=== PATIENT | female | born 1950 | race African-American/Black ===

== ENCOUNTER 2022-05-28 15:50 | Emergency (ER) | payer OTHER ==
[2022-05-28] MEDS ORDERED: NA CHLORIDE 0.9% 1,000 ML ONE (16:59)
[2022-05-28] MEDS ORDERED: NA CHLORIDE 0.9% 500 ML ONE ×2 (17:00→19:59)
[2022-05-28] MEDS ORDERED: FOLIC ACID 5 MG/ML VIAL ONE (17:01)
--- NOTE | 2022-05-28 17:09 | ER ---
Nurse's Notes [facility] Name: Quin Moody Age: 71 yrs Sex: Female : 1950 Arrival Date: 05/28/2022 Time: 15:54 Bed 7 Private MD: Diagnosis: Dysphagia;Weakness;Elevated white blood cell count;Dehydration Presentation: 05/28 15:56 Chief complaint: EMS states: [facility] sent her because she in nonverbal, and is kr3 having trouble swallowing and unable to take meds starting today. Nurses at [facility] said that she has declined over the past few days. Initial Sepsis Screen: Does the patient meet any 2 criteria? No. Patient's initial sepsis screen is negative. Does the patient have a suspected source of infection? No. Patient's initial sepsis screen is negative. Risk Assessment: Do you want to hurt yourself or someone else? Patient reports no desire to harm self or others. 15:56 Method Of Arrival: EMS: [facility] kr3 15:56 Acuity: ALETA 3 kr3 16:01 Coronavirus screen: Vaccine status: Patient reports receiving the 2nd dose of the covid kr3 vaccine. Client denies travel out of the [place] in the last 14 days. Ebola Screen: Patient denies travel to an Ebola-affected area in the 21 days before illness onset. 16:02 Onset of symptoms was May 25, 2022. kr3 Triage Assessment: 16:16 General: Appears in no apparent distress. comfortable, Behavior is calm, cooperative, kr3 appropriate for age. Pain: Denies pain. Historical: - Allergies: 16:09 Bupropion; kr3 16:09 Lisinopril; kr3 16:09 Augmentin; kr3 16:09 Compazine; kr3 16:09 Keflex; kr3 - PMHx: 16:05 Cerebrovascular accident; Transient cerebral ischemia; Diabetes mellitus; Hypertensive kr3 disorder; Hypercholesterolemia; - Immunization history:: Adult Immunizations up to date, Client reports receiving the 2nd dose of the Covid vaccine. - Social history:: Smoking status: Patient denies any tobacco usage or history of. - Family history:: not pertinent. Screenin:38 Abuse screen: Denies threats or abuse. Denies injuries from another. Nutritional as6 screening: No deficits noted. Tuberculosis screening: No symptoms or risk factors identified. Fall Risk None identified. Assessment: 17:00 Reassessment: No changes from previously documented assessment. Patient and/or family ll1 updated on plan of care and expected duration. Pain level reassessed. 18:00 Reassessment: No changes from previously documented assessment. Patient and/or family ll1 updated on plan of care and expected duration. Pain level reassessed. 19:00 Reassessment: No changes from previously documented assessment. Patient and/or family ll1 updated on plan of care and expected duration. Pain level reassessed. 19:58 General: pt does not want to be transferred, provider spoke with pt. pt understands the as6 risks for leaving. pt wanting to go home . Vital Signs: 15:56 BP 128 / 88; Pulse 98; Resp 16; Temp 98.0; Pulse Ox 99% on R/A; kr3 20:00 BP 138 / 85; Pulse 97; Resp 16 S; Pulse Ox 99% on R/A; as6 21:00 BP 136 / 97; Pulse 91; Resp 17 S; Pulse Ox 100% on R/A; as6 22:00 BP 139 / 84; Pulse 92; Resp 17 S; Pulse Ox 99% on R/A; as6 NIH Stroke Scale Scores: 19:25 NIHSS Score: 0 anastasia ED Course: 15:51 Patient placed in an exam room, on a stretcher. kr3 15:54 Patient arrived in ED. eb 15:56 Jud Hunt, VARSHA is Primary Nurse. kr3 16:01 Triage completed. kr3 16:22 Rashawn Duran MD is Attending Physician. anastasia 17:00 Missed attempt(s): 22 gauge in right upper arm. Bleeding controlled, band aid applied, ll1 catheter tip intact. 17:10 XRAY Chest (1 view) In Process Unspecified. EDMS 17:13 CT Head Brain wo Cont In Process Unspecified. EDMS 18:35 Inserted saline lock: 18 gauge in left EJ, using aseptic technique. Blood collected. ll1 19:19 Faxed over patient information to the [facility]. mw2 19:47 Attending Physician role handed off by Rashawn Duran MD ms3 19:47 Gustabo Cee DO is Attending Physician. ms3 20:[address] Cee to the Doctor from the [facility]. mw2 20:22 administrative approval given by Tran Guevara/ patient has been accepted to the [address] to the ER/ Dr. Holbrook accepted the patient in transfer/report to be called to [phone] ext. [phone]. 21:38 [facility] ETA 1 hour. mw2 22:39 Arm band placed on. as6 22:39 Placed in gown. Bed in low position. Call light in reach. Side rails up X2. as6 22:39 No provider procedures requiring assistance completed. Patient transferred, IV remains as6 in place. Administered Medications: 19:06 Drug: NS 0.9% 500 ml Route: IV; Rate: bolus; Site: Other; kr3 22:40 Follow up: Response: No adverse reaction; IV Status: Completed infusion; IV Intake: as6 500ml 19:12 Drug: foLIC Acid 1 mg Route: IVPB; Site: left jugular; as6 22:42 Follow up: Response: No adverse reaction; IV Status: Completed infusion; IV Intake: [id number] 20:14 Drug: NS 0.9% 1000 ml Route: IV; Rate: 125 ml/hr; Site: left jugular; as6 22:42 Follow up: Response: No adverse reaction; IV Status: Order to discontinue infusion; IV as6 Intake: 400ml 20:14 Drug: LevaQUIN (levofloxacin) 500 mg Volume: 100 ml; Route: IVPB; Infused Over: 60 as6 mins; Site: left jugular; 22:40 Follow up: Response: No adverse reaction; IV Status: Completed infusion; IV Intake: as6 100ml 20:14 Drug: Aspirin 81 mg Route: PO; as6 22:40 Follow up: Response: No adverse reaction as6 20:14 Drug: PlaVIX (clopidogrel) 75 mg Route: PO; as6 22:40 Follow up: Response: No adverse reaction as6 20:14 Drug: NS 0.9% 500 ml Route: IV; Rate: bolus; Site: left jugular; as6 22:40 Follow up: Response: No adverse reaction; IV Status: Completed infusion; IV Intake: as6 500ml Medication: 22:40 VIS not applicable for this client. as6 Intake: 22:40 IV: 500ml; Total: 500ml. as6 22:40 IV: 100ml; Total: 600ml. as6 22:40 IV: 500ml; Total: 1100ml. as6 22:42 IV: 50ml; Total: 1150ml. as6 22:42 IV: 400ml; Total: 1550ml. as6 Outcome: 17:08 ER care complete, transfer ordered by . [facility] 22:39 Transferred by ground EMS to [facility] Transfer form completed. as6 X-rays sent w/ patient. 22:39 Condition: stable 22:39 Instructed on the need for transfer. 22:46 Patient left the ED. as6 NIH Stroke Scale - NIH Stroke Score Date: 05/28/2022 Time: 19:25 Total Score = 0 1a. Level of Consciousness (LOC) - 0(Alert) 1b. Level of Consciousness (LOC) (Month \T\ Age) - 0(Both) 1c. LOC Commands (Open \T\ Closes Eyes/Payroll Master) - 0(Both) 2. Best Gaze (Lateral Gaze Paresis) - 0(Normal) 3. Visual Field Loss - 0(No visual loss) 4. Facial Palsy - 0(Normal) 5a. Left Arm: Motor (10-second hold) - 0(No drift) 5b. Right Arm: Motor (10-second hold) - 0(No drift) 6a. Left Leg: Motor (5-second hold - always test supine) - 0(No drift) 6b. Right Leg: Motor (5-second hold - always test supine) - 0(No drift) 7. Limb Ataxia (finger/nose \T\ heel/munoz - test with eyes open) - 0(Absent) 8. Sensory Loss (pinprick arms/legs/face) - 0(Normal) 9. Best Language: Aphasia (description/naming/reading) - 0(No aphasia) 10. Dysarthria (speech clarity - read or repeat words) - 0(Normal) 11. Extinction and Inattention (visual/tactile/auditory/spatial/personal) - 0(No abnormality) Initials: [facility] Signatures: Dispatcher [employer] EDMS Rashawn Duran MD MD cha Westbrook, MyKena mw2 Eliane Samuel Lynsay, RN RN ll1 Gustabo Cee DO DO ms3 Luis Allen RN RN as6 Jud Hunt RN RN kr3 Corrections: (The following items were deleted from the chart) 16:05 15:56 Chief complaint: EMS states: [facility] sent her because she in kr3 nonverbal, and is having trouble swallowing. Nurses at [facility] said that she has declined over the past few days. kr3 16:17 16:16 Patient placed in an exam room, on a stretcher, kr3 kr3
--- NOTE | 2022-05-28 17:09 | EDPHYS ---
Physician Documentation [facility] Name: Quin Moody Age: 71 yrs Sex: Female : 1950 Arrival Date: 05/28/2022 Time: 15:54 Bed 7 Private MD: ED Physician Gustabo Cee HPI: 05/28 16:46 This 71 yrs old Black Female presents to ER via EMS with complaints of dyspnea, sob and anastasia not swallowing. 16:46 The patient has shortness of breath at rest, with light activity. Onset: The anastasia symptoms/episode began/occurred 2 day(s) ago. Duration: The symptoms are intermittent, with no pattern. The patient's shortness of breath has no apparent modifying factors. in nh , cva 05/07. Associated signs and symptoms: Pertinent positives: non-productive cough, dizziness. Severity of symptoms: At their worst the symptoms were mild moderate in the emergency department the symptoms have resolved. The patient or guardian reports cough, difficulty breathing. Severity of symptoms: At their worst the symptoms were mild, moderate, in the emergency department the symptoms are unchanged. Historical: - Allergies: 16:09 Bupropion; kr3 16:09 Lisinopril; kr3 16:09 Augmentin; kr3 16:09 Compazine; kr3 16:09 Keflex; kr3 - PMHx: 16:05 Cerebrovascular accident; Transient cerebral ischemia; Diabetes mellitus; Hypertensive kr3 disorder; Hypercholesterolemia; - Immunization history:: Adult Immunizations up to date, Client reports receiving the 2nd dose of the Covid vaccine. - Social history:: Smoking status: Patient denies any tobacco usage or history of. - Family history:: not pertinent. ROS: 16:46 Constitutional: Negative for fever, chills, and weight loss, Eyes: Negative for injury, anastasia pain, redness, and discharge, ENT: Negative for injury, pain, and discharge, Neck: Negative for injury, pain, and swelling, Cardiovascular: Negative for chest pain, palpitations, and edema, Abdomen/GI: Negative for abdominal pain, nausea, vomiting, diarrhea, and constipation, Back: Negative for injury and pain, : Negative for injury, bleeding, discharge, and swelling, MS/Extremity: Negative for injury and deformity, Skin: Negative for injury, rash, and discoloration, Neuro: Negative for headache, weakness, numbness, tingling, and seizure, Psych: Negative for depression, anxiety, suicide ideation, homicidal ideation, and hallucinations, Allergy/Immunology: Negative for hives, rash, and allergies, Endocrine: Negative for neck swelling, polydipsia, polyuria, polyphagia, and marked weight changes. 16:46 Respiratory: Positive for cough, with no reported sputum. Exam: 16:46 Constitutional: This is a well developed, well nourished patient who is awake, alert, anastasia and in no acute distress. Head/Face: Normocephalic, atraumatic. Eyes: Pupils equal round and reactive to light, extra-ocular motions intact. Lids and lashes normal. Conjunctiva and sclera are non-icteric and not injected. Cornea within normal limits. Periorbital areas with no swelling, redness, or edema. ENT: Nares patent. No nasal discharge, no septal abnormalities noted. Tympanic membranes are normal and external auditory canals are clear. Oropharynx with no redness, swelling, or masses, exudates, or evidence of obstruction, uvula midline. Mucous membranes moist. Neck: Trachea midline, no thyromegaly or masses palpated, and no cervical lymphadenopathy. Supple, full range of motion without nuchal rigidity, or vertebral point tenderness. No Meningismus. Chest/axilla: Normal chest wall appearance and motion. Nontender with no deformity. No lesions are appreciated. Cardiovascular: Regular rate and rhythm with a normal S1 and S2. No gallops, murmurs, or rubs. Normal PMI, no JVD. No pulse deficits. Abdomen/GI: Soft, non-tender, with normal bowel sounds. No distension or tympany. No guarding or rebound. No evidence of tenderness throughout. Back: No spinal tenderness. No costovertebral tenderness. Full range of motion. Female : Normal external genitalia. Skin: Warm, dry with normal turgor. Normal color with no rashes, no lesions, and no evidence of cellulitis. MS/ Extremity: Pulses equal, no cyanosis. Neurovascular intact. Full, normal range of motion. Neuro: Awake and alert, GCS 15, oriented to person, place, time, and situation. Cranial nerves II-XII grossly intact. Motor strength 5/5 in all extremities. Sensory grossly intact. Cerebellar exam normal. Normal gait. Psych: Awake, alert, with orientation to person, place and time. Behavior, mood, and affect are within normal limits. 16:46 ECG was reviewed by the Attending Physician. Vital Signs: 15:56 BP 128 / 88; Pulse 98; Resp 16; Temp 98.0; Pulse Ox 99% on R/A; kr3 20:00 BP 138 / 85; Pulse 97; Resp 16 S; Pulse Ox 99% on R/A; as6 21:00 BP 136 / 97; Pulse 91; Resp 17 S; Pulse Ox 100% on R/A; as6 22:00 BP 139 / 84; Pulse 92; Resp 17 S; Pulse Ox 99% on R/A; as6 NIH Stroke Scale Scores: 19:25 NIHSS Score: 0 anastasia Procedures: 18:40 Peripheral line: by aseptic technique a peripheral line was placed in the left external anastasia jugular vein. MDM: 16:22 Patient medically screened. anastasia 16:52 Differential diagnosis: Anxiety Reaction CHF exacerbation, Chronic Obstructive anastasia Pulmonary Disease pulmonary edema, reactive airway disease, Sepsis Unstable Angina. Antibiotic administration: . Differential Diagnosis altered mental status, sepsis, flu, Bronchitis Influenza Upper Respiratory Infection Sinusitis Pharyngitis. The patient's Wells Deep Vein Thrombosis Score was calculated as follows: Heart Rate >100 BPM (1.5 Pts) Imm/Surg in last 4 wks (1.5 Pts) Total Score: 3-6 Pts - Mod Risk. The patient's pulmonary embolism risk score was calculated as follows: the patients heart rate is greater than 100 beats per minute (1.5 Pts) patient has experienced immobilization or surgery in the last four weeks (1.5 Pts) Total Score: 3-6 points. This patient was found to be at moderate risk for a pulmonary embolism by using the Well's assessment criteria. Immunization status: Pneumococcal vaccine: Influenza vaccine: Data reviewed: vital signs, nurses notes, EMS record, lab test result(s), EKG, radiologic studies, CT scan, plain films. Data interpreted: front desk monitor: rate is 98 beats/min, rhythm is regular, Pulse oximetry: on room air is 99 %. Test interpretation: by ED physician or midlevel provider: ECG, plain radiologic studies. Counseling: I had a detailed discussion with the patient and/or guardian regarding: the historical points, exam findings, and any diagnostic results supporting the discharge/admit diagnosis, lab results, radiology results, the need to transfer to another facility, for higher level of care, [facility] does not immediately have the required specialist. 21:11 ED course: Discussed case with Dr Machado [facility] ms3 05/28 16:38 Order name: Basic Metabolic Panel [facility] 05/28 16:38 Order name: CBC with Diff; Complete Time: 18:42 [facility] 05/28 16:38 Order name: LFT's [facility] 05/28 16:38 Order name: Magnesium 05/28 16:38 Order name: NT PRO-BNP anastasia 05/28 16:38 Order name: PT-INR; Complete Time: 19:22 [facility] 05/28 16:38 Order name: Troponin HS [facility] 05/28 16:38 Order name: XRAY Chest (1 view); Complete Time: 18:42 [facility] 05/28 16:38 Order name: Lipase 05/28 16:38 Order name: Lactate; Complete Time: 19:22 [facility] 05/28 16:38 Order name: Blood Culture Adult (2) [facility] 05/28 18:07 Order name: SARS RAPID; Complete Time: 19:22 kr 05/28 16:38 Order name: EKG; Complete Time: 16:39 [facility] 05/28 16:38 Order name: Cardiac monitoring; Complete Time: 16:39 [facility] 05/28 16:38 Order name: EKG - Nurse/Tech; Complete Time: 16:39 [facility] 05/28 16:38 Order name: IV Saline Lock; Complete Time: 18:55 [facility] 05/28 16:38 Order name: Labs collected and sent; Complete Time: 18:55 [facility] 05/28 16:38 Order name: O2 Per Protocol; Complete Time: 16:48 [facility] 05/28 16:38 Order name: O2 Sat Monitoring; Complete Time: 16:48 [facility] 05/28 16:38 Order name: CT Head Brain wo Cont; Complete Time: 18:42 [facility] 05/28 18:50 Order name: Labs - recollect needed: recollect green top; Complete Time: 19:15 eb EC:46 Rate is 96 beats/min. Rhythm is regular. QRS [place] is Normal. [place] interval is normal. QRS anastasia interval is normal. QT interval is normal. No Q waves. T waves are Normal. No ST changes noted. Clinical impression: NSR w/ Non-specific ST/T Changes and No evidence of ischemia. Interpreted by me. Reviewed by me. Administered Medications: 19:06 Drug: NS 0.9% 500 ml Route: IV; Rate: bolus; Site: Other; kr3 22:40 Follow up: Response: No adverse reaction; IV Status: Completed infusion; IV Intake: as6 500ml 19:12 Drug: foLIC Acid 1 mg Route: IVPB; Site: left jugular; as6 22:42 Follow up: Response: No adverse reaction; IV Status: Completed infusion; IV Intake: [id number] 20:14 Drug: NS 0.9% 1000 ml Route: IV; Rate: 125 ml/hr; Site: left jugular; as6 22:42 Follow up: Response: No adverse reaction; IV Status: Order to discontinue infusion; IV as6 Intake: 400ml 20:14 Drug: LevaQUIN (levofloxacin) 500 mg Volume: 100 ml; Route: IVPB; Infused Over: 60 as6 mins; Site: left jugular; 22:40 Follow up: Response: No adverse reaction; IV Status: Completed infusion; IV Intake: as6 100ml 20:14 Drug: Aspirin 81 mg Route: PO; as6 22:40 Follow up: Response: No adverse reaction as6 20:14 Drug: PlaVIX (clopidogrel) 75 mg Route: PO; as6 22:40 Follow up: Response: No adverse reaction as6 20:14 Drug: NS 0.9% 500 ml Route: IV; Rate: bolus; Site: left jugular; as6 22:40 Follow up: Response: No adverse reaction; IV Status: Completed infusion; IV Intake: as6 500ml Disposition Summary: 05/28/22 17:08 Transfer Ordered Transfer Location: [facility] anastasia Reason: Higher level of care anastasia Condition: Fair anastasia Problem: an ongoing problem anastasia Symptoms: have worsened anastasia Accepting Physician: to [place](05/28/22 22:46) as6 Diagnosis - Dysphagia anastasia - Weakness anastasia - Elevated white blood cell count anastasia - Dehydration anastasia Forms: - Medication Reconciliation Form anastasia - SBAR form anastasia NIH Stroke Scale - NIH Stroke Score Date: 05/28/2022 Time: 19:25 Total Score = 0 1a. Level of Consciousness (LOC) - 0(Alert) 1b. Level of Consciousness (LOC) (Month \T\ Age) - 0(Both) 1c. LOC Commands (Open \T\ Closes Eyes/Management Specialist) - 0(Both) 2. Best Gaze (Lateral Gaze Paresis) - 0(Normal) 3. Visual Field Loss - 0(No visual loss) 4. Facial Palsy - 0(Normal) 5a. Left Arm: Motor (10-second hold) - 0(No drift) 5b. Right Arm: Motor (10-second hold) - 0(No drift) 6a. Left Leg: Motor (5-second hold - always test supine) - 0(No drift) 6b. Right Leg: Motor (5-second hold - always test supine) - 0(No drift) 7. Limb Ataxia (finger/nose \T\ heel/munoz - test with eyes open) - 0(Absent) 8. Sensory Loss (pinprick arms/legs/face) - 0(Normal) 9. Best Language: Aphasia (description/naming/reading) - 0(No aphasia) 10. Dysarthria (speech clarity - read or repeat words) - 0(Normal) 11. Extinction and Inattention (visual/tactile/auditory/spatial/personal) - 0(No abnormality) Initials: [facility] Signatures: Dispatcher [employer] EDMS Rashawn Duran MD MD cha Botello, Elizabeth eb Sims, Marcus, DO DO ms3 Luis Allen RN RN as6 Jud Hunt RN RN kr3 Corrections: (The following items were deleted from the chart) 19:26 [facility]:08 [facility] anastasia anastasia 22:46 19:26 to [facility] as6
--- NOTE | 2022-05-28 17:19 | RAD REPORT ---
EXAM DESCRIPTION: RAD - Chest Single View - 05/28/2022 5:08 pm CLINICAL HISTORY: COUGH Chest pain. COMPARISON: No comparisons FINDINGS: Portable technique limits examination quality. The lungs are grossly clear. The heart is normal in size. No displaced fractures. IMPRESSION: No acute intrathoracic process suspected.
--- NOTE | 2022-05-28 17:23 | RAD REPORT ---
EXAM DESCRIPTION: CT - Head Brain Wo Cont - 05/28/2022 5:12 pm CLINICAL HISTORY: Mental status change, unknown cause Headache, drowsiness COMPARISON: No comparisons TECHNIQUE: All CT scans are performed using dose optimization technique as appropriate and may inclu de automated exposure control or mA/KV adjustment according to patient size. FINDINGS: No intracranial hemorrhage, hydrocephalus or extra-axial fluid collection.Mild generalized brain atrophy is present with mild periventricular and deep white matter chronic microvascular ische luke changes.No areas of brain edema or evidence of midline shift. The paranasal sinuses and mastoids are clear. The calvarium is intact. IMPRESSION: No acute intracranial abnormality.
[2022-05-28 18:36] LABS: Absolute Lymphocytes (CBC) 2.3 K/uL (0.7-4.9); Hematocrit 51.8 % (36.0-45.0); Lymphocytes % 17.5 % (15.3-44.8); MCV 85.2 fL (80-100); MPV 7.2 fL (7.6-11.3); RBC Red Blood Cell Count 6.08 M/uL (3.86-4.86)
[2022-05-28 18:46] LABS: Protime INR 0.98
[2022-05-28 19:04] LABS: SARS-CoV-2 Antigen Rapid Res Negative (Negative)
[2022-05-28] MEDS ORDERED: ASPIRIN 81 MG CHEWABLE TABLET ONE (19:59)
[2022-05-28] MEDS ORDERED: CLOPIDOGREL 75 MG TABLET ONE (19:59)
[2022-05-28] MEDS ORDERED: Levofloxacin500mg IV 500 MG/100 ML BAG IV ONE (19:59)
[2022-05-28 20:01] LABS: ALT/SGPT 26 U/L (12-78); AST/SGOT 19 U/L (15-37); Albumin 3.6 g/dL (3.4-5.0); Alkaline Phosphatase 72 U/L (45-117); BUN Blood Urea Nitrogen 100 mg/dL (7-18); Bicarbonate 25 mmol/L (21-32); Bilirubin Direct 0.2 mg/dL (0-0.2); Bilirubin Total 0.4 mg/dL (0.2-1.0); Glomerular Filtration Rate 13 ml/min (=/>90); Glucose Level 198 mg/dL (74-106); Lipase 991 U/L (73-393); Magnesium 3.3 mg/dL (1.8-2.4); Potassium 3.5 mmol/L (3.5-5.1); Protein, Total 8.8 g/dL (6.4-8.2); Sodium Level 140 mmol/L (136-145); Troponin High Sensitivity 32.7 pg/mL (<58.9)
[2022-05-28 23:54] LABS: NT PRO-BNP ND pg/mL (<125)
[2022-05-29 01:10] VITALS: TEMP 98
[2022-05-29 01:19] VITALS: BP 139/84; O2SAT 99
--- NOTE | 2022-05-29 05:38 | EKG ---
Test Date: 2022-05-28 Test Time: 16:47:50 Shoe Packer: CAROLIN MEASUREMENT RESULTS: Intervals: Rate: 96 CT: 164 QRSD: 88 QT: 370 QTc: 467 Sumner: P: 0 CT: 164 QRS: 87 T: 7 INTERPRETIVE STATEMENTS: Normal sinus rhythm Inferior infarct, age undetermined Abnormal ECG No previous ECG available for comparison Electronically Signed On 05-29-22 05:37:41 CDT by Thanh Cueto
== END 2022-05-28 22:46 ==
LOC: ER 15:50
PROC: 05HQ33Z Insertion of Infusion Device into Left External Jugular Vein, Percutaneous Approach (ICD-10-PCS; principal; 2022-05-28)
DX: R13.10 Dysphagia, unspecified (principal); E86.0 Dehydration; R53.1 Weakness; D72.829 Elevated white blood cell count, unspecified; Z20.822 Contact with and (suspected) exposure to COVID-19; E11.9 Type 2 diabetes mellitus without complications; I10 Essential (primary) hypertension; Z86.73 Personal history of transient ischemic attack (TIA), and cerebral infarction without residual deficits; Z88.1 Allergy status to other antibiotic agents; Z88.8 Allergy status to other drugs, medicaments and biological substances
CPT/HCPCS: 96365; 93005; 87040 ×2; 85025; 80048; 36415; 83735; 87205 ×2; 85610; 80076; 83605; 84484; 83690; 70450; 71045; 99285; 96366; 87811; 36569; J7040 ×2; J7030